=== PATIENT | male | born 1930 | race Caucasian/White ===

== ENCOUNTER 2018-08-24 08:44 | Inpatient (IN) | payer MEDICARE ==
[2018-08-14 15:51] LABS: BASOPHILS % (AUTO) 0.4 % (0-1); EOSINOPHILS # (AUTO) 0.2 X10'3 (0-0.9); EOSINOPHILS % (AUTO) 2.3 % (0-6); LYMPHOCYTES # (AUTO) 1.6 X10'3 (1.1-4.8); LYMPHOCYTES % (AUTO) 17.8 % (21-51); MEAN CORPUSCULAR HEMOGLOBIN 31.4 PG (27.0-31.0); MEAN CORPUSCULAR HGB CONC 33.6 % (33.0-36.5); MEAN CORPUSCULAR VOLUME 93.4 FL (78-98); MEAN PLATELET VOLUME 8.4 FL (7.4-10.4); MONOCYTES # (AUTO) 0.7 X10'3 (0-0.9); MONOCYTES % (AUTO) 7.7 % (2-12); NEUTROPHILS # (AUTO) 6.6 X10'3 (1.8-7.7); NEUTROPHILS % (AUTO) 71.8 % (42-75); PRE OP HEMATOCRIT 47.6 % (35.0-45.0); PRE OP PLATELET COUNT 240 X10'3 (140-440); RED CELL DISTRIBUTION WIDTH 12.9 % (11.5-14.5)
[2018-08-14 16:19] LABS: ALBUMIN 3.4 G/DL (3.4-5.0); ALBUMIN/GLOBULIN RATIO 0.9 (1.1-1.5); ALKALINE PHOSPHATASE 87 IU/L (46-116); BLOOD UREA NITROGEN 32 MG/DL (7-18); BUN/CREATININE RATIO 21.1 (6.6-38.0); CHLORIDE 103 MMOL/L (99-107); CREATININE 1.52 MG/DL (0.40-0.90); PRE OP ALT 23 U/L (30-65); PRE OP ANION GAP 8 (8-16); PRE OP AST 17 U/L (10-37); PRE OP BILIRUB, TOTAL 0.3 MG/DL (0.0-1.0); PRE OP GLUCOSE 96 MG/DL (70-104); PRE OP POTASSIUM 3.6 MMOL/L (3.4-5.1); PRE OP SODIUM 140 MMOL/L (135-145); TOTAL CARBON DIOXIDE 28.7 MMOL/L (24-32); eGFR 32 ML/MIN
[2018-08-14 16:23] LABS: PRE OP INR 1.1 INR; PRE OP PROTIME 11.3 SECONDS (9.0-12.0)
[2018-08-17 08:49] LABS: CLARITY,URINE CLEAR (Clear); COLOR,URINE YELLOW (Yellow); GLUCOSE, URINE NEGATIVE (Neg); KETONES,URINE NEGATIVE (Neg); LEUKOCYTE ESTERASE ,URINE NEGATIVE (Neg); NITRITES, URINE NEGATIVE (Neg); OCCULT BLOOD,URINE SMALL (Neg); PROTEIN,URINE NEGATIVE (Neg); UROBILINOGEN,URINE 0.2 E.U/dL (0.2-1.0)
[2018-08-17 08:57] LABS: UA COLLECTION TYPE NON-SPECIFIED
[2018-08-17 08:59] LABS: BACTERIA,URINE NONE SEEN /HPF (Neg); SQUAMOUS EPITHELIAL CELL,UR FEW /LPF (FEW); WBC,URINE NONE SEEN /HPF (0-4)
[2018-08-24] VITALS (13 sets, daily range): BP systolic 118–174; BP diastolic 75–102
[~2018-08-24] VITALS: Ht 180.3 cm; Wt 102.3 kg
[~2018-08-24 08:44] MED LIST: AMIO200T54 PO; ASPI81TA52 PO; EDOX30TA PO; LEVO150T8 PO; TRIA1CAP6 PO; acetaminophen 325mg tablet PO ONE; cefazolin/dext.iso 2gm/50ml 50 ML IV ONE; celeCOXIB 100mg capsule PO ONE; famotidine 20mg tablet PO ONE; gabapentin 300mg capsule PO ONE; ringers solution, lacted 1,000 ML IV SCH; tranexamic acid inj. 1,500 MG in normal saline 100ml IV soln 85 ML IV ONE
[2018-08-24] MEDS ORDERED: ROPIVAcaine 0.5% (5mg/ml) 30ml vial ONE (09:09)
[2018-08-24] MEDS ORDERED: BUPIVAcaine/PF 2.5mg/ml (0.25%) 10ml vial ONE (09:09)
[2018-08-24] MEDS ORDERED: LIDOcaine 1% (10mg/ml) 2ml vial ONE (09:18)
[2018-08-24] MEDS ORDERED: bacitracin inj 150,000 UNIT in sodium chloride irrig. sol 3,000 ML IR ONE (09:30)
[2018-08-24] MEDS ORDERED: tetracaine 1% (10mg/ml) pres. free inj. ONE (10:05)
[2018-08-24] MEDS ORDERED: ePHEDrine 50MG/ML INJ. ONE (10:06)
[2018-08-24] MEDS ORDERED: sevoflurane 250ml liquid IH ONE (10:06)
[2018-08-24] MEDS ORDERED: fentaNYL/PF 50MCG/1 ML 2ML syringe ONE ×2 (10:08→11:00)
[2018-08-24] MEDS ORDERED: MIDAZolam 1mg/ml 10ml vial ONE (10:08)
--- NOTE | 2018-08-24 10:17 | NUR ---
BETADINE TO R HIP ORDERED Addendum: 08/24/18 at 1047 by Josefa Kelley RN Amended: Links added.
[2018-08-24] MEDS ORDERED: propofol inj 20 ML IV ONE (10:56)
[2018-08-24] MEDS ORDERED: rocuronium 10mg/ml inj IV ONE (10:56)
[2018-08-24] MEDS ORDERED: ketamine 50mg/5ml syringe ONE (11:01)
[2018-08-24] MEDS ORDERED: ceFAZolin 1000mg inj ONE (11:45)
[2018-08-24] MEDS ORDERED: ringers solution, lacted 1,000 ML IV SCH (11:59)
[2018-08-24] MEDS ORDERED: meperidine/PF 25mg/ml syringe IV PRN ×3 (12:00)
[2018-08-24] MEDS ORDERED: ondansetron/PF 4mg/2ml inj IV PRN ×2 (12:00→12:20)
[2018-08-24] MEDS ORDERED: proCHLORperazine 10 MG/2 ml inj IV PRN (12:00)
[2018-08-24] MEDS ORDERED: morphine 4 MG/ML inj SYRINge IV PRN ×2 (12:00)
[2018-08-24] MEDS ORDERED: neostigmine methylsulfate 1 MG/ML 10ml vial ONE (12:07)
[2018-08-24] MEDS ORDERED: glycopyrrolate 0.2mg/ml inj ONE (12:07)
[2018-08-24] MEDS ORDERED: magnesium hydroxide 30ml (MOM) UD suspension PO PRN (12:20)
[2018-08-24] MEDS ORDERED: acetaminophen 325mg tablet PO PRN (12:20)
[2018-08-24] MEDS ORDERED: diphenhydrAMINE 25mg capsule PO PRN ×2 (12:20)
[2018-08-24] MEDS ORDERED: bisacodyl 10mg suppository rectal RC PRN (12:20)
[2018-08-24] MEDS ORDERED: HYDROmorphone 1 mg/ml syringe IV PRN (12:20)
--- NOTE | 2018-08-24 12:22 | NUR ---
Received from OR via , accompanied by Anesthesiologist DR WOODS and report given by Anesthesiolgist. AWAKENS TO VOICE. VITALS STABLE. DRESSING DI. JACKELIN PAIN. O[place]ENDO WITH CLEAR URINE.
--- NOTE | 2018-08-24 13:22 | NUR ---
Report called to receiving nurse. Transferred via BED Belongings . Special Issues communicated to receiving nurse. AWAKE AND ORIENTED. VITALS STABLE. DRESSING DI. STATES ONLY MIN DISCOMFORT. TO ORTHO RM [id number] AT THIS TIME.
[2018-08-24] MEDS ORDERED: warfarin 5mg tablet PO ONE (15:00)
[2018-08-24] MEDS: gabapentin 300mg capsule PO SCH ×2 (15:29→20:34)
[2018-08-24] MEDS: potassium cl 20mEq in 1/2 NS 1,000 ML IV SCH ×2 (15:30→20:34)
[2018-08-24] MEDS: ceFAZolin 1GM/D5W- ADD-VANTAGE 50 ML IV SCH ×2 (15:30→23:30)
--- NOTE | 2018-08-24 18:28 | NUR ---
Problems reprioritized. Patient report given, questions answered & plan of care reviewed with Kathi TERAN.
[2018-08-24] MEDS: ascorbic acid 500mg tablet PO SCH (20:33)
[2018-08-24] MEDS: sennosides 8.6mg tablet PO SCH (20:34)
[2018-08-24] MEDS: oxyCODONE/APAP 5-325mg tablet PO PRN ×2 (22:34→23:27)
[2018-08-25 02:00] VITALS: BP 130/80
[2018-08-25] MEDS: potassium cl 20mEq in 1/2 NS 1,000 ML IV SCH ×3 (04:19→19:58)
[2018-08-25] MEDS: oxyCODONE/APAP 5-325mg tablet PO PRN ×2 (05:11→15:30)
[2018-08-25 06:00] VITALS: BP 114/81
[2018-08-25 06:31] LABS: INR 1.3 INR; PROTHROMBIN TIME 13.2 SECONDS (9.0-12.0)
--- NOTE | 2018-08-25 06:34 | NUR ---
RECEIVED REPORT FROM YAZMIN RN
[2018-08-25 06:38] LABS: ALANINE AMINOTRANSFERASE 26 U/L (12-78); ALBUMIN 2.5 G/DL (3.4-5.0); ALBUMIN/GLOBULIN RATIO 0.8 (1.1-1.5); ALKALINE PHOSPHATASE 55 IU/L (46-116); ANION GAP 4 (8-16); ASPARTATE AMINO TRANSFERASE 28 U/L (10-37); BILIRUBIN,TOTAL 0.4 MG/DL (0.1-1.0); BLOOD UREA NITROGEN 17 MG/DL (7-18); BUN/CREATININE RATIO 12.8 (5.4-32.0); CALCIUM 7.6 MG/DL (8.5-10.1); CHLORIDE 103 MMOL/L (99-107); CREATININE 1.33 MG/DL (0.60-1.10); GLUCOSE 116 MG/DL (70-104); POTASSIUM 4.1 MMOL/L (3.5-5.1); SODIUM 135 MMOL/L (135-145); TOTAL CARBON DIOXIDE 27.7 MMOL/L (24-32); TOTAL PROTEIN 5.5 G/DL (6.4-8.2); eGFR 51 ML/MIN
[2018-08-25 06:57] LABS: BASOPHILS % (AUTO) 0.4 % (0-1); EOSINOPHILS # (AUTO) 0.1 X10'3 (0-0.9); EOSINOPHILS % (AUTO) 1.2 % (0-6); HEMATOCRIT 37.3 % (42.0-52.0); LYMPHOCYTES % (AUTO) 14.7 % (21-51); MEAN CORPUSCULAR HEMOGLOBIN 32.5 PG (27.0-31.0); MEAN CORPUSCULAR HGB CONC 34.9 % (33.0-36.5); MEAN CORPUSCULAR VOLUME 93.1 FL (78-98); MEAN PLATELET VOLUME 8.7 FL (7.4-10.4); MONOCYTES # (AUTO) 0.8 X10'3 (0-0.9); MONOCYTES % (AUTO) 10.6 % (2-12); NEUTROPHILS # (AUTO) 5.2 X10'3 (1.8-7.7); NEUTROPHILS % (AUTO) 73.1 % (42-75); PLATELET COUNT 208 X10'3 (140-440); RED CELL DISTRIBUTION WIDTH 11.6 % (11.5-14.5); WHITE BLOOD COUNT 7.1 X10'3 (4.5-11.0)
[2018-08-25] MEDS: triamterene/HCTZ 37.5/25mg tablet PO SCH (07:41)
[2018-08-25] MEDS: levoTHYROXINE 75mcg tablet PO SCH (07:46)
[2018-08-25] MEDS: gabapentin 300mg capsule PO SCH ×3 (07:46→20:00)
[2018-08-25] MEDS: multivitamins, therapeutics tablet PO SCH (07:46)
[2018-08-25] MEDS: ascorbic acid 500mg tablet PO SCH ×2 (07:46→19:59)
[2018-08-25 10:00] VITALS: BP 115/62
[2018-08-25] MEDS ORDERED: warfarin 5mg tablet PO ONE (10:00)
--- NOTE | 2018-08-25 14:29 | NUR ---
Joint replacement consult: Pt PO 100% regular diet. Ensure high protein TIDWM added in order to meet wound healing needs; notified. Good PO given age. No nutrition concerns at this time. Addendum: 08/25/18 at [address] Amended: Links added.
[2018-08-25 18:00] VITALS: BP 126/76
--- NOTE | 2018-08-25 18:25 | NUR ---
Received report from Jigna TERAN. Assumed care of patient.
[2018-08-25] MEDS: sennosides 8.6mg tablet PO SCH (20:00)
[2018-08-25 22:00] VITALS: BP 114/75
[2018-08-26] MEDS: potassium cl 20mEq in 1/2 NS 1,000 ML IV SCH (04:19)
[2018-08-26] MEDS: oxyCODONE/APAP 5-325mg tablet PO PRN (05:31)
--- NOTE | 2018-08-26 05:41 | NUR ---
Removed Hemovac drain to right hip as ordered per protocol. Patient tolerated well with tips to drain tubes intact. 4x4s placed at drain sites with compression wrap in place. Sloan catheter was discontinued as well with urinal provided to patient. Patient verbalized understanding of use or need to use call light for assistance to bathroom. Call light within reach of patient.
[2018-08-26 06:25] LABS: BASOPHILS % (AUTO) 0.3 % (0-1); EOSINOPHILS # (AUTO) 0.1 X10'3 (0-0.9); EOSINOPHILS % (AUTO) 1.5 % (0-6); HEMATOCRIT 39.7 % (42.0-52.0); HEMOGLOBIN 13.6 g/dl (14.0-17.9); LYMPHOCYTES % (AUTO) 11.5 % (21-51); MEAN CORPUSCULAR HEMOGLOBIN 32.1 PG (27.0-31.0); MEAN CORPUSCULAR HGB CONC 34.2 % (33.0-36.5); MEAN CORPUSCULAR VOLUME 93.9 FL (78-98); MEAN PLATELET VOLUME 8.5 FL (7.4-10.4); MONOCYTES # (AUTO) 0.9 X10'3 (0-0.9); MONOCYTES % (AUTO) 10.8 % (2-12); NEUTROPHILS # (AUTO) 6.6 X10'3 (1.8-7.7); NEUTROPHILS % (AUTO) 75.9 % (42-75); PLATELET COUNT 221 X10'3 (140-440); RED BLOOD COUNT 4.23 X10'6 (4.70-6.10); WHITE BLOOD COUNT 8.6 X10'3 (4.5-11.0)
[2018-08-26 06:28] LABS: INR 1.5 INR; PROTHROMBIN TIME 15.3 SECONDS (9.0-12.0)
--- NOTE | 2018-08-26 06:28 | NUR ---
Received report from Oralia TERAN
[2018-08-26 06:31] LABS: ALANINE AMINOTRANSFERASE 26 U/L (12-78); ALBUMIN 2.5 G/DL (3.4-5.0); ALBUMIN/GLOBULIN RATIO 0.7 (1.1-1.5); ALKALINE PHOSPHATASE 58 IU/L (46-116); ANION GAP 6 (8-16); ASPARTATE AMINO TRANSFERASE 26 U/L (10-37); BILIRUBIN,TOTAL 0.3 MG/DL (0.1-1.0); BLOOD UREA NITROGEN 19 MG/DL (7-18); BUN/CREATININE RATIO 15.4 (5.4-32.0); CHLORIDE 102 MMOL/L (99-107); CREATININE 1.23 MG/DL (0.60-1.10); GLUCOSE 109 MG/DL (70-104); SODIUM 135 MMOL/L (135-145); TOTAL CARBON DIOXIDE 26.6 MMOL/L (24-32); TOTAL PROTEIN 5.9 G/DL (6.4-8.2); eGFR 56 ML/MIN
[2018-08-26 07:27] VITALS: BP 138/84
[2018-08-26] MEDS: levoTHYROXINE 75mcg tablet PO SCH (07:56)
[2018-08-26] MEDS: ascorbic acid 500mg tablet PO SCH (07:56)
[2018-08-26] MEDS: triamterene/HCTZ 37.5/25mg tablet PO SCH (07:56)
[2018-08-26] MEDS: multivitamins, therapeutics tablet PO SCH (07:56)
[2018-08-26] MEDS: gabapentin 300mg capsule PO SCH (07:56)
[2018-08-26] MEDS ORDERED: lactose-reduced food (Ensure High Protein) 237ml bottle PO SCH (08:00)
[2018-08-26] MEDS ORDERED: amiodarone 200mg tablet PO SCH (08:00)
[2018-08-26] MEDS ORDERED: warfarin 5mg tablet PO ONE (10:00)
--- NOTE | 2018-08-26 10:37 | NUR ---
pATIENT WAS DISCHARGED iv AND TELE WAS REMOVED. PATIENT WAS ALERT AND ORIENTED AT TIME OF DISCHARGE. PATIENT LEFT WITH . PATIENT LEFT WITH HES OWN CANE AND STATED THAT HE HAD A WALKER AT HOME.
[2018-08-26] MEDS ORDERED: acetaminophen 325mg tablet PO PRN (12:20)
== END 2018-08-26 10:10 | disposition home health service (06) | DRG 470 ==
LOC: PAS IN 08:44 → EDSEX 08:44 → EDSTATUS 10:45 → ORTHO 4S 13:33
PROVIDERS: ADMIT Specialist; ATTEND Specialist
PROC: 0SR902Z Replacement of Right Hip Joint with Metal on Polyethylene Synthetic Substitute, Open Approach (ICD-10-PCS; principal; 2018-08-24 10:06)
DX: M16.11 Unilateral primary osteoarthritis, right hip (principal); D62 Acute posthemorrhagic anemia; E03.9 Hypothyroidism, unspecified; I48.2 Chronic atrial fibrillation; G47.30 Sleep apnea, unspecified; I10 Essential (primary) hypertension; K21.9 Gastro-esophageal reflux disease without esophagitis; Z79.899 Other long term (current) drug therapy; Z88.0 Allergy status to penicillin; Z79.82 Long term (current) use of aspirin
CPT/HCPCS: 36415; 73502; 80053; 81001; 84443; 85025; 85610; 85730; 86885; 86900; 86901; 87070; 97110; 97116; 97161; 97530; A6253; A6449; A6455; A7000; C1758; C1776; G0378; J0690; J2175; J2250; J2704; J2710; J2795; J3010; J3490; J7030; J7120